=== PATIENT | male | born 1980 | race African-American/Black ===

== ENCOUNTER 2025-03-23 20:57 | Emergency (ER) | payer OTHER ==
[2025-03-23] MEDS ORDERED: Ibuprofen 200 MG TAB ONE (23:05)
== END 2025-03-23 23:15 ==
LOC: NAV ERS 20:57
DX: M79.622 Pain in left upper arm (principal); F32.A Depression, unspecified; I10 Essential (primary) hypertension; F20.9 Schizophrenia, unspecified; Z79.899 Other long term (current) drug therapy
CPT/HCPCS: 99283